=== PATIENT | female | born 1945 | race Asian ===

== ENCOUNTER 2019-07-05 08:18 | Emergency (ER) | payer MEDICARE ==
[~2019-07-05] VITALS: Ht 167.6 cm; Wt 81.8 kg
[2019-07-05 08:44] LABS: BASOPHILS % (AUTO) 0.5 % (0.0-2.0); EOSINOPHILS % (AUTO) 1.6 % (1.0-6.0); HEMATOCRIT 43.8 % (36-46); HEMOGLOBIN 14.1 g/dL (12.0-16.0); LYMPHOCYTES # (AUTO) 3.1 K/uL (1.0-4.8); LYMPHOCYTES % (AUTO) 47.2 % (22.0-44.0); MEAN CORPUSCULAR HEMOGLOBIN 26.9 pg (26.0-34.0); MEAN CORPUSCULAR HGB CONC 32.2 G/dL (31.0-37.0); MEAN CORPUSCULAR VOLUME 83 fL (80-100); MONOCYTES # (AUTO) 0.5 K/uL (0.1-1.0); MONOCYTES % (AUTO) 6.9 % (2.0-9.0); NEUTROPHILS # (AUTO) 2.9 K/uL (1.8-7.7); NEUTROPHILS % (AUTO) 43.8 % (40.0-70.0); PLATELET COUNT (AUTO) 260 K/uL (150-450); RED BLOOD CELL COUNT(AUTO) 5.25 MIL/uL (4.00-5.20)
[2019-07-05 08:57] LABS: ANION GAP 9 mmol/L (8-16); CALCIUM, TOTAL 8.5 mg/dL (8.8-10.5); CARBON DIOXIDE 27 mmol/L (22-29); CHLORIDE 104 mmol/L (98-107); CREATININE 0.79 mg/dL (0.60-1.30); GLOMERULAR FILTR. RATE CALC > 60 mL/min (>60); GLUCOSE,RANDOM 140 mg/dL (70-110); POTASSIUM 3.4 mmol/L (3.5-5.1); SODIUM SERUM 140 mmol/L (136-145); UREA NITROGEN, BLOOD 15 mg/dL (7-18)
[2019-07-05 09:01] LABS: PROTHROMBIN TIME 9.8 SEC (9.4-11.6)
[2019-07-05 09:12] LABS: B-TYPE NATRIURETIC PEPTIDE 20 pg/mL (0-100)
[2019-07-05] MEDS ORDERED: IOVERSOL 320 MG/ML 50 ML VIAL ONE (09:15)
[2019-07-05] MEDS ORDERED: NiCARDipine HCL 25 MG in DEXTROSE 5%-WATER 240 ML IV PRN (09:30)
[2019-07-05 09:36] LABS: ALANINE AMINOTRANSFERASE 24 U/L (12-78); ALBUMIN 3.8 g/dL (3.4-5.0); ALKALINE PHOSPHATASE 61 U/L (46-116); ASPARTATE AMINOTRANSFERASE 20 U/L (15-37); BILIRUBIN,TOTAL 0.4 mg/dL (0.1-1.0); CREATINE KINASE, TOTAL ONLY 176 U/L (26-192); TOTAL PROTEIN, SERUM 7.3 g/dL (6.4-8.2)
[2019-07-05 10:30] VITALS: BP 149/70
== END 2019-07-05 10:55 | disposition short-term general hospital (02) ==
LOC: EMS 08:25
DX: I62.9 Nontraumatic intracranial hemorrhage, unspecified (principal); I10 Essential (primary) hypertension; R79.89 Other specified abnormal findings of blood chemistry
CPT/HCPCS: 36415; 70450; 70496; 71045; 72125; 80053; 82550; 82962; 83880; 84484; 85025; 85610; 85730; 86850; 86900; 86901; 93005; 96365; 99291; J3490; J7060; Q9967

== ENCOUNTER 2019-07-08 15:29 | Inpatient (IN) | payer MEDICARE, MEDICAID ==
[~2019-07-08] VITALS: Ht 162.6 cm; Wt 54.4 kg
[2019-07-08 16:30] VITALS: BP 155/86
[2019-07-08] MEDS ORDERED: LACTULOSE 20 GM/30 ML SOLUTION UDCUP PO PRN (17:00)
[2019-07-08] MEDS ORDERED: BISACODYL 10 MG RECTAL RECTAL SUPPOSITORY PR PRN (17:00)
[2019-07-08] MEDS: CARVEDILOL 6.25 MG TABLET PO SCH (18:19)
[2019-07-08 18:30] VITALS: BP 126/95
[2019-07-08] MEDS: DOCUSATE SODIUM 100 MG CAPSULE PO SCH (20:43)
[2019-07-08] MEDS: SENNA 187 MG TABLET PO SCH (20:43)
[2019-07-09 00:25] VITALS: BP 149/79
[2019-07-09 07:20] VITALS: BP 151/77
[2019-07-09 08:09] LABS: BASOPHILS % (AUTO) 0.3 % (0.0-2.0); EOSINOPHILS % (AUTO) 2.1 % (1.0-6.0); HEMATOCRIT 44.1 % (36-46); HEMOGLOBIN 14.6 g/dL (12.0-16.0); LYMPHOCYTES # (AUTO) 2.6 K/uL (1.0-4.8); LYMPHOCYTES % (AUTO) 36.2 % (22.0-44.0); MEAN CORPUSCULAR HGB CONC 33.1 G/dL (31.0-37.0); MEAN CORPUSCULAR VOLUME 85 fL (80-100); MONOCYTES # (AUTO) 0.6 K/uL (0.1-1.0); MONOCYTES % (AUTO) 8.8 % (2.0-9.0); NEUTROPHILS # (AUTO) 3.7 K/uL (1.8-7.7); NEUTROPHILS % (AUTO) 52.6 % (40.0-70.0); PLATELET COUNT (AUTO) 274 K/uL (150-450); RED BLOOD CELL COUNT(AUTO) 5.22 MIL/uL (4.00-5.20); RED CELL DISTRIBUTION WIDTH 14.4 % (11.5-14.5)
[2019-07-09] MEDS: CARVEDILOL 6.25 MG TABLET PO SCH ×2 (08:35→18:26)
[2019-07-09] MEDS: DOCUSATE SODIUM 100 MG CAPSULE PO SCH ×2 (08:36→20:16)
[2019-07-09] MEDS: AmLODIPine BESYLATE 5 MG TABLET PO SCH (08:36)
[2019-07-09] MEDS: SENNA 187 MG TABLET PO SCH ×2 (08:36→20:16)
[2019-07-09 09:22] LABS: ALANINE AMINOTRANSFERASE 24 U/L (12-78); ALBUMIN 3.6 g/dL (3.4-5.0); ALKALINE PHOSPHATASE 55 U/L (46-116); ANION GAP 8 mmol/L (8-16); ASPARTATE AMINOTRANSFERASE 19 U/L (15-37); BILIRUBIN,TOTAL 0.7 mg/dL (0.1-1.0); CALCIUM, TOTAL 8.6 mg/dL (8.8-10.5); CARBON DIOXIDE 28 mmol/L (22-29); CHLORIDE 104 mmol/L (98-107); CREATININE 0.78 mg/dL (0.60-1.30); GLOMERULAR FILTR. RATE CALC > 60 mL/min (>60); GLUCOSE,RANDOM 99 mg/dL (70-110); POTASSIUM 3.3 mmol/L (3.5-5.1); SODIUM SERUM 140 mmol/L (136-145); TOTAL PROTEIN, SERUM 7.2 g/dL (6.4-8.2); UREA NITROGEN, BLOOD 15 mg/dL (7-18)
[2019-07-09 11:51] LABS: THYROID STIMULATING HORMONE 0.63 uIU/mL (0.36-3.74)
[2019-07-09] MEDS ORDERED: POTASSIUM CHLORIDE 20 MEQ ER TABLET PO ONE (14:00)
[2019-07-09 16:10] VITALS: BP 145/71
[2019-07-09 18:25] VITALS: BP 152/79
[2019-07-10 03:47] VITALS: BP 156/75
[2019-07-10 07:16] VITALS: BP 145/78
[2019-07-10] MEDS: CARVEDILOL 6.25 MG TABLET PO SCH ×2 (09:25→17:34)
[2019-07-10] MEDS: DOCUSATE SODIUM 100 MG CAPSULE PO SCH ×2 (09:25→20:50)
[2019-07-10] MEDS: SENNA 187 MG TABLET PO SCH ×2 (09:25→20:51)
[2019-07-10] MEDS: AmLODIPine BESYLATE 5 MG TABLET PO SCH (09:25)
[2019-07-10 15:00] VITALS: BP 135/68
[2019-07-10 17:23] VITALS: BP 141/90
[2019-07-10 23:00] VITALS: BP 160/75
[2019-07-11 05:00] VITALS: BP 134/65
[2019-07-11 07:10] VITALS: BP 128/69
[2019-07-11 07:15] VITALS: BP 154/74
[2019-07-11] MEDS: DOCUSATE SODIUM 100 MG CAPSULE PO SCH ×2 (08:08→21:11)
[2019-07-11] MEDS: AmLODIPine BESYLATE 10 MG TABLET PO SCH (08:08)
[2019-07-11] MEDS: CARVEDILOL 6.25 MG TABLET PO SCH ×2 (08:08→17:41)
[2019-07-11] MEDS: SENNA 187 MG TABLET PO SCH ×2 (08:08→21:11)
[2019-07-11 10:36] VITALS: BP 101/56
[2019-07-11 13:06] VITALS: BP 124/59
[2019-07-11 15:00] VITALS: BP 155/69
[2019-07-12 01:00] VITALS: BP 127/65
[2019-07-12 07:00] VITALS: BP 130/74
[2019-07-12 08:00] VITALS: BP 135/67
[2019-07-12] MEDS: DOCUSATE SODIUM 100 MG CAPSULE PO SCH ×2 (08:11→20:09)
[2019-07-12] MEDS: SENNA 187 MG TABLET PO SCH ×2 (08:11→20:09)
[2019-07-12] MEDS: AmLODIPine BESYLATE 10 MG TABLET PO SCH (08:14)
[2019-07-12] MEDS: CARVEDILOL 6.25 MG TABLET PO SCH ×2 (10:42→17:38)
[2019-07-12 10:55] VITALS: BP 145/67
[2019-07-12] MEDS: CALCIUM CIT/VITAMIN D3 200 MG-250 UNITS TABLET PO SCH ×2 (13:56→20:09)
[2019-07-12 15:00] VITALS: BP 124/72
[2019-07-13 02:55] VITALS: BP 135/73
[2019-07-13 07:00] VITALS: BP 144/76
[2019-07-13] MEDS: CARVEDILOL 6.25 MG TABLET PO SCH ×2 (07:52→17:24)
[2019-07-13] MEDS: AmLODIPine BESYLATE 10 MG TABLET PO SCH (07:52)
[2019-07-13] MEDS: SENNA 187 MG TABLET PO SCH ×2 (07:52→21:00)
[2019-07-13] MEDS: CALCIUM CIT/VITAMIN D3 200 MG-250 UNITS TABLET PO SCH ×2 (07:52→21:13)
[2019-07-13] MEDS: DOCUSATE SODIUM 100 MG CAPSULE PO SCH ×2 (07:52→21:00)
[2019-07-13 09:50] VITALS: BP 141/69
[2019-07-13 15:00] VITALS: BP 144/69
[2019-07-13 23:30] VITALS: BP 156/61
[2019-07-14 04:38] VITALS: BP 128/66
[2019-07-14 08:00] VITALS: BP 136/68
[2019-07-14] MEDS: DOCUSATE SODIUM 100 MG CAPSULE PO SCH ×2 (08:03→20:45)
[2019-07-14] MEDS: AmLODIPine BESYLATE 10 MG TABLET PO SCH (08:04)
[2019-07-14] MEDS: CARVEDILOL 6.25 MG TABLET PO SCH ×2 (08:04→17:20)
[2019-07-14] MEDS: SENNA 187 MG TABLET PO SCH ×2 (08:04→20:45)
[2019-07-14] MEDS: CALCIUM CIT/VITAMIN D3 200 MG-250 UNITS TABLET PO SCH ×2 (08:04→20:45)
[2019-07-14 20:29] VITALS: BP 142/67
[2019-07-14 23:00] VITALS: BP 151/76
[2019-07-15 07:00] VITALS: BP 145/76
[2019-07-15] MEDS: AmLODIPine BESYLATE 10 MG TABLET PO SCH (08:05)
[2019-07-15] MEDS: DOCUSATE SODIUM 100 MG CAPSULE PO SCH ×2 (08:05→21:07)
[2019-07-15] MEDS: SENNA 187 MG TABLET PO SCH ×2 (08:05→21:07)
[2019-07-15] MEDS: CALCIUM CIT/VITAMIN D3 200 MG-250 UNITS TABLET PO SCH ×2 (08:05→21:07)
[2019-07-15] MEDS: CARVEDILOL 6.25 MG TABLET PO SCH ×2 (08:05→18:30)
[2019-07-15 10:00] VITALS: BP 108/69
[2019-07-15 16:02] VITALS: BP 130/66
[2019-07-15 23:41] VITALS: BP 151/69
[2019-07-16] MEDS ORDERED: LOSA50TA37 PO (03:37)
[2019-07-16] MEDS ORDERED: CALC-1085 PO (03:38)
[2019-07-16 07:00] VITALS: BP 144/62
[2019-07-16] MEDS: CALCIUM CIT/VITAMIN D3 200 MG-250 UNITS TABLET PO SCH ×2 (07:34→20:06)
[2019-07-16] MEDS: AmLODIPine BESYLATE 10 MG TABLET PO SCH (07:35)
[2019-07-16] MEDS: CARVEDILOL 6.25 MG TABLET PO SCH ×2 (07:35→17:43)
[2019-07-16] MEDS: SENNA 187 MG TABLET PO SCH ×2 (07:35→20:06)
[2019-07-16] MEDS: DOCUSATE SODIUM 100 MG CAPSULE PO SCH ×2 (07:35→20:06)
[2019-07-16 09:59] VITALS: BP 127/75
[2019-07-16 15:20] VITALS: BP 130/64
[2019-07-16 23:48] VITALS: BP 126/65
[2019-07-17] MEDS: SENNA 187 MG TABLET PO SCH ×2 (07:59→21:05)
[2019-07-17] MEDS: AmLODIPine BESYLATE 10 MG TABLET PO SCH (07:59)
[2019-07-17] MEDS: CALCIUM CIT/VITAMIN D3 200 MG-250 UNITS TABLET PO SCH ×2 (07:59→21:05)
[2019-07-17] MEDS: DOCUSATE SODIUM 100 MG CAPSULE PO SCH ×2 (07:59→21:05)
[2019-07-17] MEDS: CARVEDILOL 6.25 MG TABLET PO SCH ×2 (07:59→17:46)
[2019-07-17] MEDS: GABAPENTIN 100 MG CAPSULE PO SCH ×3 (11:42→21:05)
[2019-07-17 14:07] VITALS: BP 129/69
[2019-07-17 16:10] VITALS: BP 141/79
[2019-07-17 20:00] VITALS: BP 132/74
[2019-07-18 05:15] VITALS: BP 128/61
[2019-07-18 07:27] VITALS: BP 139/70
[2019-07-18] MEDS: CARVEDILOL 6.25 MG TABLET PO SCH ×2 (07:44→16:18)
[2019-07-18 08:07] LABS: ANION GAP 8 mmol/L (8-16); CALCIUM, TOTAL 9.2 mg/dL (8.8-10.5); CARBON DIOXIDE 29 mmol/L (22-29); CHLORIDE 107 mmol/L (98-107); CREATININE 0.64 mg/dL (0.60-1.30); GLUCOSE,RANDOM 107 mg/dL (70-110); POTASSIUM 4.9 mmol/L (3.5-5.1); SODIUM SERUM 144 mmol/L (136-145); UREA NITROGEN, BLOOD 17 mg/dL (7-18)
[2019-07-18 08:08] LABS: GLOMERULAR FILTR. RATE CALC > 60 mL/min (>60)
[2019-07-18] MEDS: SENNA 187 MG TABLET PO SCH ×2 (08:55→20:26)
[2019-07-18] MEDS: AmLODIPine BESYLATE 10 MG TABLET PO SCH (08:55)
[2019-07-18] MEDS: GABAPENTIN 100 MG CAPSULE PO SCH ×3 (08:55→20:26)
[2019-07-18] MEDS: CALCIUM CIT/VITAMIN D3 200 MG-250 UNITS TABLET PO SCH ×2 (08:55→20:26)
[2019-07-18] MEDS: DOCUSATE SODIUM 100 MG CAPSULE PO SCH ×2 (08:55→20:26)
[2019-07-18] MEDS: CARBOXYMETHYLCELLULOSE SODIUM 0.4 ML OPHTHALMIC SOLUTION [PF] OU SCH ×4 (10:15→20:26)
[2019-07-18 16:14] VITALS: BP 124/66
[2019-07-18] MEDS: MINERAL OIL/PETROLATUM,WHITE PF 3.5 GM OPHTHALMIC OINTMENT OU SCH (20:31)
[2019-07-18 23:30] VITALS: BP 139/75
[2019-07-19 07:10] VITALS: BP 134/69
[2019-07-19] MEDS: CALCIUM CIT/VITAMIN D3 200 MG-250 UNITS TABLET PO SCH ×2 (08:10→19:44)
[2019-07-19] MEDS: SENNA 187 MG TABLET PO SCH ×2 (08:10→19:44)
[2019-07-19] MEDS: DOCUSATE SODIUM 100 MG CAPSULE PO SCH ×2 (08:11→19:44)
[2019-07-19] MEDS: AmLODIPine BESYLATE 10 MG TABLET PO SCH (08:11)
[2019-07-19] MEDS: CARVEDILOL 6.25 MG TABLET PO SCH ×2 (08:11→17:38)
[2019-07-19] MEDS: GABAPENTIN 100 MG CAPSULE PO SCH ×3 (08:11→19:44)
[2019-07-19] MEDS: CARBOXYMETHYLCELLULOSE SODIUM 0.4 ML OPHTHALMIC SOLUTION [PF] OU SCH ×2 (14:51→17:38)
[2019-07-19 15:46] VITALS: BP 131/83
[2019-07-19] MEDS: MINERAL OIL/PETROLATUM,WHITE PF 3.5 GM OPHTHALMIC OINTMENT OU SCH (19:44)
[2019-07-20 00:35] VITALS: BP 148/73
[2019-07-20 07:07] VITALS: BP 127/65
[2019-07-20] MEDS: CARBOXYMETHYLCELLULOSE SODIUM 0.4 ML OPHTHALMIC SOLUTION [PF] OU SCH ×3 (08:27→17:31)
[2019-07-20] MEDS: GABAPENTIN 100 MG CAPSULE PO SCH ×3 (08:27→20:08)
[2019-07-20] MEDS: DOCUSATE SODIUM 100 MG CAPSULE PO SCH ×2 (08:27→20:09)
[2019-07-20] MEDS: CARVEDILOL 6.25 MG TABLET PO SCH ×2 (08:27→17:30)
[2019-07-20] MEDS: CALCIUM CIT/VITAMIN D3 200 MG-250 UNITS TABLET PO SCH ×2 (08:27→17:32)
[2019-07-20] MEDS: SENNA 187 MG TABLET PO SCH ×2 (08:27→20:11)
[2019-07-20] MEDS: AmLODIPine BESYLATE 10 MG TABLET PO SCH (08:28)
[2019-07-20 15:45] VITALS: BP 138/63
[2019-07-20] MEDS: MINERAL OIL/PETROLATUM,WHITE PF 3.5 GM OPHTHALMIC OINTMENT OU SCH (20:09)
[2019-07-20 23:33] VITALS: BP 123/60
[2019-07-21 07:10] VITALS: BP 127/72
[2019-07-21] MEDS: CALCIUM CIT/VITAMIN D3 200 MG-250 UNITS TABLET PO SCH ×2 (07:52→20:42)
[2019-07-21] MEDS: GABAPENTIN 100 MG CAPSULE PO SCH ×3 (07:52→20:40)
[2019-07-21] MEDS: CARBOXYMETHYLCELLULOSE SODIUM 0.4 ML OPHTHALMIC SOLUTION [PF] OU SCH ×3 (07:52→17:08)
[2019-07-21] MEDS: DOCUSATE SODIUM 100 MG CAPSULE PO SCH ×2 (07:52→20:40)
[2019-07-21] MEDS: SENNA 187 MG TABLET PO SCH ×2 (07:52→20:40)
[2019-07-21] MEDS: CARVEDILOL 6.25 MG TABLET PO SCH ×2 (07:53→17:08)
[2019-07-21] MEDS: AmLODIPine BESYLATE 10 MG TABLET PO SCH (07:53)
[2019-07-21 15:00] VITALS: BP 130/70
[2019-07-21 17:06] VITALS: BP 140/67
[2019-07-21] MEDS: MINERAL OIL/PETROLATUM,WHITE PF 3.5 GM OPHTHALMIC OINTMENT OU SCH (20:40)
[2019-07-22] VITALS: BP 131/59
[2019-07-22 07:07] VITALS: BP 136/69
[2019-07-22] MEDS: CARVEDILOL 6.25 MG TABLET PO SCH ×2 (07:51→17:28)
[2019-07-22] MEDS: DOCUSATE SODIUM 100 MG CAPSULE PO SCH ×2 (07:51→21:08)
[2019-07-22] MEDS: GABAPENTIN 100 MG CAPSULE PO SCH ×3 (07:51→21:08)
[2019-07-22] MEDS: CALCIUM CIT/VITAMIN D3 200 MG-250 UNITS TABLET PO SCH ×2 (07:52→21:08)
[2019-07-22] MEDS: AmLODIPine BESYLATE 10 MG TABLET PO SCH (07:52)
[2019-07-22] MEDS: SENNA 187 MG TABLET PO SCH ×2 (07:56→21:09)
[2019-07-22] MEDS: CARBOXYMETHYLCELLULOSE SODIUM 0.4 ML OPHTHALMIC SOLUTION [PF] OU SCH ×3 (08:38→17:28)
[2019-07-22 15:10] VITALS: BP 136/61
[2019-07-22] MEDS: MINERAL OIL/PETROLATUM,WHITE PF 3.5 GM OPHTHALMIC OINTMENT OU SCH (21:08)
[2019-07-23 00:23] VITALS: BP 130/58
[2019-07-23] MEDS: CALCIUM CIT/VITAMIN D3 200 MG-250 UNITS TABLET PO SCH ×2 (08:11→20:20)
[2019-07-23] MEDS: AmLODIPine BESYLATE 10 MG TABLET PO SCH (08:11)
[2019-07-23] MEDS: SENNA 187 MG TABLET PO SCH ×2 (08:11→20:20)
[2019-07-23] MEDS: DOCUSATE SODIUM 100 MG CAPSULE PO SCH ×2 (08:11→20:20)
[2019-07-23] MEDS: GABAPENTIN 100 MG CAPSULE PO SCH ×3 (08:11→20:20)
[2019-07-23] MEDS: CARVEDILOL 6.25 MG TABLET PO SCH ×2 (08:12→17:22)
[2019-07-23] MEDS: CARBOXYMETHYLCELLULOSE SODIUM 0.4 ML OPHTHALMIC SOLUTION [PF] OU SCH ×3 (08:16→17:50)
[2019-07-23 08:20] VITALS: BP 136/74
[2019-07-23] MEDS: ENOXAPARIN SODIUM 30 MG/0.3 ML PF SYRINGE SQ SCH ×2 (10:18→20:20)
[2019-07-23 10:45] LABS: BASOPHILS % (AUTO) 0.5 % (0.0-2.0); EOSINOPHILS % (AUTO) 1.7 % (1.0-6.0); HEMOGLOBIN 13.8 g/dL (12.0-16.0); LYMPHOCYTES # (AUTO) 1.7 K/uL (1.0-4.8); LYMPHOCYTES % (AUTO) 30.8 % (22.0-44.0); MEAN CORPUSCULAR HEMOGLOBIN 28.2 pg (26.0-34.0); MEAN CORPUSCULAR HGB CONC 33.7 G/dL (31.0-37.0); MEAN CORPUSCULAR VOLUME 84 fL (80-100); MONOCYTES # (AUTO) 0.4 K/uL (0.1-1.0); MONOCYTES % (AUTO) 7.7 % (2.0-9.0); NEUTROPHILS # (AUTO) 3.3 K/uL (1.8-7.7); NEUTROPHILS % (AUTO) 59.3 % (40.0-70.0); PLATELET COUNT (AUTO) 274 K/uL (150-450); RED BLOOD CELL COUNT(AUTO) 4.89 MIL/uL (4.00-5.20); RED CELL DISTRIBUTION WIDTH 13.7 % (11.5-14.5)
[2019-07-23 11:42] LABS: ALANINE AMINOTRANSFERASE 20 U/L (12-78); ALBUMIN 3.4 g/dL (3.4-5.0); ALKALINE PHOSPHATASE 65 U/L (46-116); ANION GAP 9 mmol/L (8-16); ASPARTATE AMINOTRANSFERASE 16 U/L (15-37); BILIRUBIN,TOTAL 0.4 mg/dL (0.1-1.0); CALCIUM, TOTAL 9.1 mg/dL (8.8-10.5); CARBON DIOXIDE 26 mmol/L (22-29); CHLORIDE 104 mmol/L (98-107); CREATININE 0.62 mg/dL (0.60-1.30); GLUCOSE,RANDOM 104 mg/dL (70-110); POTASSIUM 3.6 mmol/L (3.5-5.1); SODIUM SERUM 139 mmol/L (136-145); TOTAL PROTEIN, SERUM 7.3 g/dL (6.4-8.2); UREA NITROGEN, BLOOD 15 mg/dL (7-18)
[2019-07-23 11:44] LABS: GLOMERULAR FILTR. RATE CALC > 60 mL/min (>60)
[2019-07-23 15:10] VITALS: BP 137/67
[2019-07-23 16:13] VITALS: BP 137/67
[2019-07-23] MEDS: MINERAL OIL/PETROLATUM,WHITE PF 3.5 GM OPHTHALMIC OINTMENT OU SCH (20:20)
[2019-07-24 00:35] VITALS: BP 127/68
[2019-07-24 07:10] VITALS: BP 143/78
[2019-07-24] MEDS: CALCIUM CIT/VITAMIN D3 200 MG-250 UNITS TABLET PO SCH ×2 (08:05→20:34)
[2019-07-24] MEDS: GABAPENTIN 100 MG CAPSULE PO SCH ×3 (08:05→20:34)
[2019-07-24] MEDS: AmLODIPine BESYLATE 10 MG TABLET PO SCH (08:05)
[2019-07-24] MEDS: SENNA 187 MG TABLET PO SCH ×2 (08:05→20:34)
[2019-07-24] MEDS: CARBOXYMETHYLCELLULOSE SODIUM 0.4 ML OPHTHALMIC SOLUTION [PF] OU SCH ×3 (08:05→17:44)
[2019-07-24] MEDS: DOCUSATE SODIUM 100 MG CAPSULE PO SCH ×2 (08:06→20:34)
[2019-07-24] MEDS: CARVEDILOL 6.25 MG TABLET PO SCH ×2 (08:11→17:44)
[2019-07-24] MEDS: ENOXAPARIN SODIUM 30 MG/0.3 ML PF SYRINGE SQ SCH ×2 (08:39→20:34)
[2019-07-24] MEDS ORDERED: 0.9% SODIUM CHLORIDE 10 ML SYRINGE IVP ONE (08:59)
[2019-07-24 15:00] VITALS: BP 127/60
[2019-07-24] MEDS: MINERAL OIL/PETROLATUM,WHITE PF 3.5 GM OPHTHALMIC OINTMENT OU SCH (20:34)
[2019-07-24 23:00] VITALS: BP 127/72
[2019-07-24 23:05] VITALS: BP 127/72
[2019-07-25 07:30] VITALS: BP 144/62
[2019-07-25] MEDS: CARVEDILOL 6.25 MG TABLET PO SCH ×2 (07:58→17:22)
[2019-07-25] MEDS: SENNA 187 MG TABLET PO SCH ×2 (07:58→19:53)
[2019-07-25] MEDS: CALCIUM CIT/VITAMIN D3 200 MG-250 UNITS TABLET PO SCH ×2 (07:58→19:53)
[2019-07-25] MEDS: AmLODIPine BESYLATE 10 MG TABLET PO SCH (07:58)
[2019-07-25] MEDS: ENOXAPARIN SODIUM 30 MG/0.3 ML PF SYRINGE SQ SCH ×2 (07:58→19:54)
[2019-07-25] MEDS: DOCUSATE SODIUM 100 MG CAPSULE PO SCH ×2 (07:58→19:53)
[2019-07-25] MEDS: CARBOXYMETHYLCELLULOSE SODIUM 0.4 ML OPHTHALMIC SOLUTION [PF] OU SCH ×3 (08:07→17:22)
[2019-07-25] MEDS: GABAPENTIN 100 MG CAPSULE PO SCH ×3 (08:11→19:52)
[2019-07-25 16:14] VITALS: BP 139/77
[2019-07-25] MEDS: MINERAL OIL/PETROLATUM,WHITE PF 3.5 GM OPHTHALMIC OINTMENT OU SCH (19:52)
[2019-07-25 23:15] VITALS: BP 142/73
[2019-07-26 07:17] VITALS: BP 158/93
[2019-07-26] MEDS: DOCUSATE SODIUM 100 MG CAPSULE PO SCH ×2 (07:42→21:09)
[2019-07-26] MEDS: AmLODIPine BESYLATE 10 MG TABLET PO SCH (07:42)
[2019-07-26] MEDS: GABAPENTIN 100 MG CAPSULE PO SCH ×3 (07:42→21:09)
[2019-07-26] MEDS: CALCIUM CIT/VITAMIN D3 200 MG-250 UNITS TABLET PO SCH ×2 (07:42→21:09)
[2019-07-26] MEDS: SENNA 187 MG TABLET PO SCH ×2 (07:42→21:09)
[2019-07-26] MEDS: CARBOXYMETHYLCELLULOSE SODIUM 0.4 ML OPHTHALMIC SOLUTION [PF] OU SCH ×3 (07:42→16:22)
[2019-07-26] MEDS: CARVEDILOL 6.25 MG TABLET PO SCH ×2 (07:43→16:22)
[2019-07-26] MEDS: ENOXAPARIN SODIUM 30 MG/0.3 ML PF SYRINGE SQ SCH ×2 (07:43→21:09)
[2019-07-26 12:41] VITALS: BP 140/68
[2019-07-26 15:50] VITALS: BP 146/104
[2019-07-26 20:30] VITALS: BP 141/75
[2019-07-26 20:35] VITALS: BP 141/59
[2019-07-26] MEDS: MINERAL OIL/PETROLATUM,WHITE PF 3.5 GM OPHTHALMIC OINTMENT OU SCH (21:10)
[2019-07-26 23:32] VITALS: BP 134/69
[2019-07-27 07:20] VITALS: BP 143/79
[2019-07-27] MEDS: CARBOXYMETHYLCELLULOSE SODIUM 0.4 ML OPHTHALMIC SOLUTION [PF] OU SCH ×3 (08:42→17:38)
[2019-07-27] MEDS: CARVEDILOL 6.25 MG TABLET PO SCH ×2 (08:42→17:38)
[2019-07-27] MEDS: ENOXAPARIN SODIUM 30 MG/0.3 ML PF SYRINGE SQ SCH ×2 (08:42→19:13)
[2019-07-27] MEDS: DOCUSATE SODIUM 100 MG CAPSULE PO SCH ×2 (08:42→19:12)
[2019-07-27] MEDS: SENNA 187 MG TABLET PO SCH ×2 (08:42→19:12)
[2019-07-27] MEDS: CALCIUM CIT/VITAMIN D3 200 MG-250 UNITS TABLET PO SCH ×2 (08:42→19:12)
[2019-07-27] MEDS: AmLODIPine BESYLATE 10 MG TABLET PO SCH (08:42)
[2019-07-27] MEDS: GABAPENTIN 100 MG CAPSULE PO SCH ×3 (08:43→19:12)
[2019-07-27 15:09] VITALS: BP 114/60
[2019-07-27] MEDS: MINERAL OIL/PETROLATUM,WHITE PF 3.5 GM OPHTHALMIC OINTMENT OU SCH (19:12)
[2019-07-27] MEDS ORDERED: AMLO10TA7 PO (20:16)
[2019-07-27] MEDS ORDERED: DOCU-275 PO (20:26)
[2019-07-27] MEDS ORDERED: CALC-884 PO (20:26)
[2019-07-27] MEDS ORDERED: CARV6 PO (20:26)
[2019-07-27] MEDS ORDERED: GABA-1216 PO (20:27)
[2019-07-27] MEDS ORDERED: CARB15DR54 OU (20:28)
[2019-07-27] MEDS ORDERED: [UNRECOGNIZED DRUG - CODE] OU (21:04)
[2019-07-27 23:16] VITALS: BP 145/61
[2019-07-28 07:10] VITALS: BP 150/84
[2019-07-28] MEDS: CALCIUM CIT/VITAMIN D3 200 MG-250 UNITS TABLET PO SCH ×2 (07:34→21:02)
[2019-07-28] MEDS: SENNA 187 MG TABLET PO SCH ×2 (07:34→21:02)
[2019-07-28] MEDS: DOCUSATE SODIUM 100 MG CAPSULE PO SCH ×2 (07:34→21:02)
[2019-07-28] MEDS: AmLODIPine BESYLATE 10 MG TABLET PO SCH (07:34)
[2019-07-28] MEDS: CARBOXYMETHYLCELLULOSE SODIUM 0.4 ML OPHTHALMIC SOLUTION [PF] OU SCH ×3 (07:35→17:09)
[2019-07-28] MEDS: GABAPENTIN 100 MG CAPSULE PO SCH ×3 (07:35→21:02)
[2019-07-28] MEDS: CARVEDILOL 6.25 MG TABLET PO SCH ×2 (07:36→17:09)
[2019-07-28] MEDS: ENOXAPARIN SODIUM 30 MG/0.3 ML PF SYRINGE SQ SCH ×2 (09:10→21:05)
[2019-07-28 15:36] VITALS: BP 151/69
[2019-07-28] MEDS: MINERAL OIL/PETROLATUM,WHITE PF 3.5 GM OPHTHALMIC OINTMENT OU SCH (21:02)
[2019-07-29 07:12] VITALS: BP 124/60
[2019-07-29] MEDS: CARBOXYMETHYLCELLULOSE SODIUM 0.4 ML OPHTHALMIC SOLUTION [PF] OU SCH ×3 (08:10→16:12)
[2019-07-29] MEDS: CALCIUM CIT/VITAMIN D3 200 MG-250 UNITS TABLET PO SCH ×2 (08:10→20:15)
[2019-07-29] MEDS: SENNA 187 MG TABLET PO SCH ×2 (08:10→20:15)
[2019-07-29] MEDS: CARVEDILOL 6.25 MG TABLET PO SCH ×2 (08:11→17:52)
[2019-07-29] MEDS: GABAPENTIN 100 MG CAPSULE PO SCH ×3 (08:11→20:15)
[2019-07-29] MEDS: DOCUSATE SODIUM 100 MG CAPSULE PO SCH ×2 (08:11→20:15)
[2019-07-29] MEDS: AmLODIPine BESYLATE 10 MG TABLET PO SCH (08:11)
[2019-07-29] MEDS: ENOXAPARIN SODIUM 30 MG/0.3 ML PF SYRINGE SQ SCH ×2 (08:12→20:15)
[2019-07-29 15:00] VITALS: BP 130/62
[2019-07-29] MEDS: MINERAL OIL/PETROLATUM,WHITE PF 3.5 GM OPHTHALMIC OINTMENT OU SCH (20:15)
[2019-07-29 23:30] VITALS: BP 143/66
[2019-07-30 07:22] VITALS: BP 146/69
[2019-07-30] MEDS: ENOXAPARIN SODIUM 30 MG/0.3 ML PF SYRINGE SQ SCH ×2 (08:12→21:30)
[2019-07-30] MEDS: AmLODIPine BESYLATE 10 MG TABLET PO SCH (08:13)
[2019-07-30] MEDS: CARVEDILOL 6.25 MG TABLET PO SCH ×2 (08:13→18:06)
[2019-07-30] MEDS: CARBOXYMETHYLCELLULOSE SODIUM 0.4 ML OPHTHALMIC SOLUTION [PF] OU SCH ×3 (08:13→18:06)
[2019-07-30] MEDS: GABAPENTIN 100 MG CAPSULE PO SCH ×3 (08:13→20:40)
[2019-07-30] MEDS: CALCIUM CIT/VITAMIN D3 200 MG-250 UNITS TABLET PO SCH ×2 (08:13→20:40)
[2019-07-30] MEDS: DOCUSATE SODIUM 100 MG CAPSULE PO SCH ×2 (08:13→20:40)
[2019-07-30] MEDS: SENNA 187 MG TABLET PO SCH ×2 (08:13→20:40)
[2019-07-30 17:55] VITALS: BP 150/76
[2019-07-30] MEDS: MINERAL OIL/PETROLATUM,WHITE PF 3.5 GM OPHTHALMIC OINTMENT OU SCH (20:40)
[2019-07-30 23:00] VITALS: BP 142/69
[2019-07-31] MEDS ORDERED: CLOP75TA3 PO (07:16)
[2019-07-31 07:18] VITALS: BP 124/65
[2019-07-31] MEDS: CARVEDILOL 6.25 MG TABLET PO SCH (08:17)
[2019-07-31] MEDS: SENNA 187 MG TABLET PO SCH (08:17)
[2019-07-31] MEDS: ENOXAPARIN SODIUM 30 MG/0.3 ML PF SYRINGE SQ SCH (08:17)
[2019-07-31] MEDS: CALCIUM CIT/VITAMIN D3 200 MG-250 UNITS TABLET PO SCH (08:17)
[2019-07-31] MEDS: AmLODIPine BESYLATE 10 MG TABLET PO SCH (08:17)
[2019-07-31] MEDS: CARBOXYMETHYLCELLULOSE SODIUM 0.4 ML OPHTHALMIC SOLUTION [PF] OU SCH (08:18)
[2019-07-31] MEDS: DOCUSATE SODIUM 100 MG CAPSULE PO SCH (08:18)
[2019-07-31] MEDS: GABAPENTIN 100 MG CAPSULE PO SCH (08:18)
[2019-07-31] MEDS ORDERED: CLOPIDOGREL BISULFATE 75 MG TABLET PO SCH (09:00)
== END 2019-07-31 11:30 | disposition home health service (06) | DRG 56 ==
LOC: 4E 16:20 → UNDOADMIN 16:20 → 2WR 16:23 → 4E 07-15 12:13 → 2WR 07-17 10:04 → 4E 07-17 10:04 → 2WR 07-18 08:34
PROVIDERS: ADMIT Physical Medicine & Rehabilitation; ATTEND Physical Medicine & Rehabilitation
DX: I69.354 Hemiplegia and hemiparesis following cerebral infarction affecting left non-dominant side (principal); I61.0 Nontraumatic intracerebral hemorrhage in hemisphere, subcortical; I10 Essential (primary) hypertension; Z82.49 Family history of ischemic heart disease and other diseases of the circulatory system; R13.10 Dysphagia, unspecified; R26.9 Unspecified abnormalities of gait and mobility
CPT/HCPCS: 76536; 84132; 84436; 84443; 87081; 92507; 92523; 92526; 93970; 93971; 97112; 97116; 97163; 97167; 97530; 97535; 99366; 99368; J1650

== ENCOUNTER → 2019-09-11 | Outpatient (CLI) | payer MEDICARE, MEDICAID ==
[~2019-09-11] MED LIST: AMLO-258 PO; CALC-884 PO; CARB15DR54 OU; CARV6 PO; CLOP75TA3 PO; DOCU-275 PO; GABA-1216 PO; [UNRECOGNIZED DRUG - CODE] OU
== END | disposition home or self-care (01) ==
LOC: RADPV 09:07
PROVIDERS: ATTEND Physical Medicine & Rehabilitation
DX: I67.82 Cerebral ischemia (principal); I82.462 Acute embolism and thrombosis of left calf muscular vein; G31.9 Degenerative disease of nervous system, unspecified; I67.2 Cerebral atherosclerosis
CPT/HCPCS: 70450; 93970

== ENCOUNTER 2019-11-25 09:28 | Emergency (ER) | payer MEDICARE, MEDICAID ==
[~2019-11-25] VITALS: Ht 149.9 cm; Wt 50.0 kg
[~2019-11-25 09:28] MED LIST changes: +CLOP-31 PO; -CLOP75TA3 PO
[2019-11-25] MEDS ORDERED: LIDOCAINE 5% TRANSDERMAL PATCH TD ONE (10:45)
[2019-11-25 11:37] VITALS: BP 143/85
== END 2019-11-25 12:22 | disposition home or self-care (01) ==
LOC: EMS 09:32
DX: S13.4XXA Sprain of ligaments of cervical spine, initial encounter (principal); I10 Essential (primary) hypertension; Z88.1 Allergy status to other antibiotic agents; Z88.6 Allergy status to analgesic agent; Z79.899 Other long term (current) drug therapy; W18.39XA Other fall on same level, initial encounter; Y93.89 Activity, other specified; Y92.89 Other specified places as the place of occurrence of the external cause; Y99.8 Other external cause status
CPT/HCPCS: 72125; Z7502; Z7610

== ENCOUNTER 2021-06-03 20:52 | Inpatient (IN) | payer MEDICAID, MEDICARE ==
[~2021-06-03] VITALS: Ht 147.3 cm; Wt 55.8 kg
[~2021-06-03 20:52] MED LIST changes: +AMLO-257 PO; -AMLO-258 PO; +ATOR10TA84 PO; -CALC-884 PO; -CARB15DR54 OU; +CARV12 PO; -CARV6 PO; -CLOP-31 PO; +CLOP75TA60 PO; -DOCU-275 PO; -GABA-1216 PO; -[UNRECOGNIZED DRUG - CODE] OU
[2021-06-03 22:13] LABS: BASOPHILS % (AUTO) 0.2 % (0.0-2.0); EOSINOPHILS % (AUTO) 0.1 % (1.0-6.0); HEMATOCRIT 41.3 % (36-46); HEMOGLOBIN 13.8 g/dL (12.0-16.0); LYMPHOCYTES # (AUTO) 0.9 K/uL (1.0-4.8); LYMPHOCYTES % (AUTO) 8.1 % (22.0-44.0); MEAN CORPUSCULAR HEMOGLOBIN 27.6 pg (26.0-34.0); MEAN CORPUSCULAR HGB CONC 33.4 G/dL (31.0-37.0); MEAN CORPUSCULAR VOLUME 83 fL (80-100); MONOCYTES # (AUTO) 0.7 K/uL (0.1-1.0); MONOCYTES % (AUTO) 6.3 % (2.0-9.0); NEUTROPHILS # (AUTO) 9.3 K/uL (1.8-7.7); PLATELET COUNT (AUTO) 303 K/uL (150-450); RED CELL DISTRIBUTION WIDTH 14.3 % (11.5-14.5)
[2021-06-03 22:35] LABS: NEUTROPHILS % (AUTO) 85.3 % (40.0-70.0)
[2021-06-03 22:40] LABS: ANION GAP 9 mmol/L (8-16); CALCIUM, TOTAL 9.2 mg/dL (8.8-10.5); CARBON DIOXIDE 28 mmol/L (22-29); CHLORIDE 99 mmol/L (98-107); CREATININE 0.82 mg/dL (0.60-1.30); GLUCOSE,RANDOM 143 mg/dL (70-110); POTASSIUM 3.8 mmol/L (3.5-5.1); SODIUM SERUM 136 mmol/L (136-145); UREA NITROGEN, BLOOD 13 mg/dL (7-18)
[2021-06-03 22:41] LABS: GLOMERULAR FILTR. RATE CALC > 60 mL/min (>60)
[2021-06-03 22:44] LABS: PROTHROMBIN TIME 10.4 SEC (9.4-11.6)
[2021-06-03 22:56] LABS: B-TYPE NATRIURETIC PEPTIDE 13 pg/mL (0-100)
[2021-06-03 23:01] LABS: COVID AG,FIA SOURCE NASAL SWAB
[2021-06-03 23:04] LABS: ALANINE AMINOTRANSFERASE 23 U/L (12-78); ALBUMIN 4.2 g/dL (3.4-5.0); ALKALINE PHOSPHATASE 70 U/L (46-116); ASPARTATE AMINOTRANSFERASE 22 U/L (15-37); BILIRUBIN,TOTAL 0.5 mg/dL (0.1-1.0); CREATINE KINASE, TOTAL ONLY 146 U/L (26-192); TOTAL PROTEIN, SERUM 8.1 g/dL (6.4-8.2)
[2021-06-03] MEDS ORDERED: FentaNYL CITRATE PF 100 MCG/2 ML VIAL IVP ONE (23:15)
[2021-06-03] MEDS ORDERED: ONDANSETRON HCL 4 MG/2 ML VIAL IVP ONE (23:15)
[2021-06-03] MEDS ORDERED: MAGNESIUM HYDROXIDE SUSPENSION 30 ML UDCUP PO PRN (23:45)
[2021-06-03] MEDS ORDERED: BISACODYL 10 MG RECTAL RECTAL SUPPOSITORY PR PRN (23:45)
[2021-06-03] MEDS ORDERED: ZOLPIDEM TARTRATE 5 MG TABLET PO PRN (23:45)
[2021-06-03] MEDS ORDERED: MORPHINE SULFATE 2 MG/ML SYRINGE IVP PRN (23:45)
[2021-06-03] MEDS ORDERED: ACETAMINOPHEN 325 MG TABLET PO PRN (23:45)
[2021-06-03] MEDS ORDERED: ONDANSETRON HCL 4 MG/2 ML VIAL IVP PRN (23:45)
[2021-06-04 01:05] VITALS: BP 152/78
[2021-06-04 05:41] VITALS: BP 127/66
[2021-06-04 07:35] VITALS: BP 130/70
[2021-06-04] MEDS: HEPARIN SODIUM,PORCINE 5,000 UNITS/ML VIAL SQ SCH ×2 (08:00)
[2021-06-04] MEDS: CARVEDILOL 12.5 MG TABLET PO SCH ×2 (08:42→21:00)
[2021-06-04] MEDS: PANTOPRAZOLE SODIUM 40 MG DR TABLET PO SCH (08:42)
[2021-06-04] MEDS: AmLODIPine BESYLATE 5 MG TABLET PO SCH (08:42)
[2021-06-04] MEDS: DOCUSATE SODIUM 100 MG CAPSULE PO SCH ×2 (08:42→21:15)
[2021-06-04] MEDS: CALCIUM CIT/VITAMIN D3 200 MG-250 UNITS[6.25MCG] TABLET PO SCH ×2 (09:00→21:15)
[2021-06-04 09:20] LABS: BASOPHILS % (AUTO) 0.2 % (0.0-2.0); EOSINOPHILS % (AUTO) 0.8 % (1.0-6.0); HEMATOCRIT 37.4 % (36-46); HEMOGLOBIN 12.4 g/dL (12.0-16.0); LYMPHOCYTES # (AUTO) 1.4 K/uL (1.0-4.8); LYMPHOCYTES % (AUTO) 17.2 % (22.0-44.0); MEAN CORPUSCULAR HEMOGLOBIN 27.3 pg (26.0-34.0); MEAN CORPUSCULAR HGB CONC 33.1 G/dL (31.0-37.0); MEAN CORPUSCULAR VOLUME 83 fL (80-100); MONOCYTES # (AUTO) 0.7 K/uL (0.1-1.0); MONOCYTES % (AUTO) 8.8 % (2.0-9.0); PLATELET COUNT (AUTO) 264 K/uL (150-450); RED BLOOD CELL COUNT(AUTO) 4.53 MIL/uL (4.00-5.20)
[2021-06-04] MEDS ORDERED: LIDOCAINE/PF 2% 5 ML VIAL IM ONE (12:00)
[2021-06-04] MEDS ORDERED: ONDANSETRON HCL 4 MG/2 ML VIAL IVP ONE (12:00)
[2021-06-04] MEDS ORDERED: ROCURONIUM BROMIDE 10 MG/ML 5 ML VIAL IVP ONE (12:00)
[2021-06-04] MEDS ORDERED: FentaNYL CITRATE PF 100 MCG/2 ML VIAL IVP ONE (12:00)
[2021-06-04] MEDS ORDERED: MIDAZOLAM HCL 2 MG/2 ML VIAL IVP ONE (12:00)
[2021-06-04] MEDS ORDERED: PROPOFOL 1% 20 ML VIAL IVP ONE (12:00)
[2021-06-04] MEDS ORDERED: TRANEXAMIC ACID 1,000 MG/10 ML VIAL ONE (13:14)
[2021-06-04] MEDS ORDERED: VANCOMYCIN HCL 1 GM/VIAL ONE (13:15)
[2021-06-04] MEDS ORDERED: BUPIVACAINE HCL/PF 0.25% 30 ML VIAL ONE (13:15)
[2021-06-04] MEDS ORDERED: SUGAMMADEX SODIUM 200 MG/2 ML VIAL IVP ONE (13:15)
[2021-06-04] MEDS ORDERED: SODIUM CHLORIDE 0.9% 200 ML ONE (13:15)
[2021-06-04] MEDS ORDERED: SODIUM CL IRRIG SOLN BAG 3,000 ML IRRIG ONE (13:16)
[2021-06-04] MEDS ORDERED: FAMO20 PO (13:25)
[2021-06-04] MEDS ORDERED: METH5TAB PO (13:25)
[2021-06-04] MEDS ORDERED: BUPIVACAINE LIPOSOME/PF 1.3%-13.3MG/ML SUSPENSION 20 ML VIAL INJ ONE (13:30)
[2021-06-04] MEDS ORDERED: RINGERS SOLUTION,LACTATED 1,000 ML IV ONE (14:26)
[2021-06-04] MEDS ORDERED: BUPIVACAINE LIPOSOME/PF 1.3%-13.3MG/ML SUSPENSION 10 ML VIAL INJ ONE (15:42)
[2021-06-04] MEDS ORDERED: FentaNYL CITRATE PF 100 MCG/2 ML VIAL IVP PRN (16:00)
[2021-06-04] MEDS ORDERED: HYDROmorphone 2 MG/ML VIAL IVP PRN (16:00)
[2021-06-04] MEDS ORDERED: OxyCODONE HCL/ACETAMINOPHEN 5-325 MG TABLET PO PRN (18:00)
[2021-06-04 18:27] VITALS: BP 119/52
[2021-06-04 20:04] VITALS: BP 109/58
[2021-06-04] MEDS: ATORVASTATIN CALCIUM 10 MG TABLET PO SCH (21:15)
[2021-06-04] MEDS ORDERED: SODIUM CHLORIDE 0.9% 250 ML IV ONE (23:07)
[2021-06-04] MEDS: CeFAZolin 1 GM/DEXTROSE 50 ML IV SCH (23:13)
[2021-06-04 23:27] VITALS: BP 117/56
[2021-06-05 05:19] VITALS: BP 109/48
[2021-06-05] MEDS: CeFAZolin 1 GM/DEXTROSE 50 ML IV SCH (06:31)
[2021-06-05] MEDS: OxyCODONE HCL/ACETAMINOPHEN 5-325 MG TABLET PO PRN ×4 (06:45→21:00)
[2021-06-05 07:41] LABS: BASOPHILS % (AUTO) 0.2 % (0.0-2.0); EOSINOPHILS % (AUTO) 0.5 % (1.0-6.0); HEMATOCRIT 31.8 % (36-46); HEMOGLOBIN 10.9 g/dL (12.0-16.0); LYMPHOCYTES # (AUTO) 1.4 K/uL (1.0-4.8); LYMPHOCYTES % (AUTO) 17.7 % (22.0-44.0); MEAN CORPUSCULAR HGB CONC 34.1 G/dL (31.0-37.0); MEAN CORPUSCULAR VOLUME 82 fL (80-100); MONOCYTES # (AUTO) 0.9 K/uL (0.1-1.0); MONOCYTES % (AUTO) 11.1 % (2.0-9.0); NEUTROPHILS # (AUTO) 5.7 K/uL (1.8-7.7); NEUTROPHILS % (AUTO) 70.5 % (40.0-70.0); PLATELET COUNT (AUTO) 238 K/uL (150-450); RED BLOOD CELL COUNT(AUTO) 3.87 MIL/uL (4.00-5.20); RED CELL DISTRIBUTION WIDTH 14.1 % (11.5-14.5)
[2021-06-05] MEDS: OXYGEN THERAPY IH SCH ×2 (08:00→20:27)
[2021-06-05 08:42] VITALS: BP 110/57
[2021-06-05] MEDS: CALCIUM CIT/VITAMIN D3 200 MG-250 UNITS[6.25MCG] TABLET PO SCH ×2 (08:43→21:00)
[2021-06-05] MEDS: PANTOPRAZOLE SODIUM 40 MG DR TABLET PO SCH (08:43)
[2021-06-05] MEDS: DOCUSATE SODIUM 100 MG CAPSULE PO SCH ×2 (08:43→20:21)
[2021-06-05 08:44] VITALS: BP 119/57
[2021-06-05] MEDS: ENOXAPARIN SODIUM 30 MG/0.3 ML PF SYRINGE SQ SCH (08:44)
[2021-06-05] MEDS: CARVEDILOL 12.5 MG TABLET PO SCH ×3 (08:57→21:00)
[2021-06-05] MEDS: AmLODIPine BESYLATE 5 MG TABLET PO SCH (08:59)
[2021-06-05 16:53] VITALS: BP 144/81
[2021-06-05 20:00] VITALS: BP 132/65
[2021-06-05] MEDS: ATORVASTATIN CALCIUM 10 MG TABLET PO SCH (20:21)
[2021-06-06 04:42] VITALS: BP 103/54
[2021-06-06 06:38] LABS: BASOPHILS % (AUTO) 0.2 % (0.0-2.0); EOSINOPHILS % (AUTO) 3.6 % (1.0-6.0); HEMATOCRIT 30.6 % (36-46); HEMOGLOBIN 10.2 g/dL (12.0-16.0); LYMPHOCYTES # (AUTO) 1.6 K/uL (1.0-4.8); LYMPHOCYTES % (AUTO) 20.9 % (22.0-44.0); MEAN CORPUSCULAR HEMOGLOBIN 27.7 pg (26.0-34.0); MEAN CORPUSCULAR HGB CONC 33.2 G/dL (31.0-37.0); MEAN CORPUSCULAR VOLUME 84 fL (80-100); MONOCYTES # (AUTO) 0.9 K/uL (0.1-1.0); MONOCYTES % (AUTO) 11.7 % (2.0-9.0); NEUTROPHILS # (AUTO) 4.9 K/uL (1.8-7.7); NEUTROPHILS % (AUTO) 63.6 % (40.0-70.0); PLATELET COUNT (AUTO) 212 K/uL (150-450); RED BLOOD CELL COUNT(AUTO) 3.66 MIL/uL (4.00-5.20)
[2021-06-06 08:03] VITALS: BP 102/56
[2021-06-06] MEDS: CARVEDILOL 12.5 MG TABLET PO SCH ×2 (08:39→20:16)
[2021-06-06] MEDS: PANTOPRAZOLE SODIUM 40 MG DR TABLET PO SCH (08:39)
[2021-06-06] MEDS: CALCIUM CIT/VITAMIN D3 200 MG-250 UNITS[6.25MCG] TABLET PO SCH ×2 (08:40→20:15)
[2021-06-06] MEDS: OXYGEN THERAPY IH SCH (08:45)
[2021-06-06] MEDS: DOCUSATE SODIUM 100 MG CAPSULE PO SCH ×2 (09:00→20:15)
[2021-06-06] MEDS: ENOXAPARIN SODIUM 30 MG/0.3 ML PF SYRINGE SQ SCH (09:00)
[2021-06-06 17:00] VITALS: BP 119/61
[2021-06-06 20:06] VITALS: BP 110/55
[2021-06-06] MEDS: ATORVASTATIN CALCIUM 10 MG TABLET PO SCH (20:15)
[2021-06-07 05:15] VITALS: BP 135/66
[2021-06-07 07:33] VITALS: BP 134/66
[2021-06-07] MEDS: OXYGEN THERAPY IH SCH (08:00)
[2021-06-07] MEDS: DOCUSATE SODIUM 100 MG CAPSULE PO SCH (08:32)
[2021-06-07] MEDS: PANTOPRAZOLE SODIUM 40 MG DR TABLET PO SCH (08:32)
[2021-06-07] MEDS: CALCIUM CIT/VITAMIN D3 200 MG-250 UNITS[6.25MCG] TABLET PO SCH (08:32)
[2021-06-07] MEDS: ENOXAPARIN SODIUM 30 MG/0.3 ML PF SYRINGE SQ SCH (08:33)
[2021-06-07] MEDS: CARVEDILOL 12.5 MG TABLET PO SCH (08:33)
[2021-06-07 15:36] VITALS: BP 118/77
== END 2021-06-07 19:15 | DRG 522 ==
LOC: EMS 20:56 → 6S 06-04 00:11
PROVIDERS: ADMIT Internal Medicine; ATTEND Internal Medicine
PROC: 0SRS0JZ Replacement of Left Hip Joint, Femoral Surface with Synthetic Substitute, Open Approach (ICD-10-PCS; principal; 2021-06-04 15:00)
DX: M84.452A Pathological fracture, left femur, initial encounter for fracture (principal); I69.354 Hemiplegia and hemiparesis following cerebral infarction affecting left non-dominant side; I10 Essential (primary) hypertension; E78.5 Hyperlipidemia, unspecified; E78.00 Pure hypercholesterolemia, unspecified; G89.29 Other chronic pain; Z20.822 Contact with and (suspected) exposure to COVID-19; W18.39XA Other fall on same level, initial encounter; Z88.8 Allergy status to other drugs, medicaments and biological substances; Z79.02 Long term (current) use of antithrombotics/antiplatelets; Y93.89 Activity, other specified; Y99.8 Other external cause status; Y92.090 Kitchen in other non-institutional residence as the place of occurrence of the external cause
CPT/HCPCS: 71045; 73503; 80053; 82550; 83880; 84484; 85025; 85610; 85730; 86850; 86900; 86901; 87081; 88300; 93005; 93306; 97110; 97162; 97166; 97530; 97535; 99285; C9290; G0238; J0690; J1644; J1650; J2250; J2270; J2405; J2704; J3010; J3370; J3490; J7050; J7120; Q9967; 36415-L1; 36415-TC; C1716; Z7610

== ENCOUNTER 2021-06-29 07:14 | Inpatient (IN) | payer MEDICARE, MEDICAID ==
[~2021-06-29] VITALS: Ht 149.9 cm; Wt 51.9 kg
[~2021-06-29 07:14] MED LIST changes: +FAMO20 PO; +METH5TAB PO
[2021-06-29 07:33] LABS: COVID AG,FIA SOURCE NASOPHARYNGEAL
[2021-06-29 07:37] LABS: BASOPHILS % (AUTO) 0.5 % (0.0-2.0); EOSINOPHILS % (AUTO) 2.2 % (1.0-6.0); HEMATOCRIT 35.9 % (36-46); HEMOGLOBIN 11.8 g/dL (12.0-16.0); LYMPHOCYTES # (AUTO) 1.3 K/uL (1.0-4.8); LYMPHOCYTES % (AUTO) 21.7 % (22.0-44.0); MEAN CORPUSCULAR HEMOGLOBIN 27.2 pg (26.0-34.0); MEAN CORPUSCULAR HGB CONC 32.9 G/dL (31.0-37.0); MEAN CORPUSCULAR VOLUME 83 fL (80-100); MONOCYTES # (AUTO) 0.5 K/uL (0.1-1.0); MONOCYTES % (AUTO) 8.7 % (2.0-9.0); NEUTROPHILS # (AUTO) 4.1 K/uL (1.8-7.7); NEUTROPHILS % (AUTO) 66.9 % (40.0-70.0); PLATELET COUNT (AUTO) 326 K/uL (150-450); RED BLOOD CELL COUNT(AUTO) 4.35 MIL/uL (4.00-5.20); RED CELL DISTRIBUTION WIDTH 14.7 % (11.5-14.5)
[2021-06-29 08:10] LABS: ANION GAP 10 mmol/L (8-16); CALCIUM, TOTAL 8.9 mg/dL (8.8-10.5); CARBON DIOXIDE 29 mmol/L (22-29); CHLORIDE 102 mmol/L (98-107); CREATININE 0.76 mg/dL (0.60-1.30); GLUCOSE,RANDOM 121 mg/dL (70-110); POTASSIUM 4.3 mmol/L (3.5-5.1); SODIUM SERUM 141 mmol/L (136-145); UREA NITROGEN, BLOOD 15 mg/dL (7-18)
[2021-06-29 08:13] LABS: GLOMERULAR FILTR. RATE CALC > 60 mL/min (>60)
[2021-06-29 08:16] LABS: ALANINE AMINOTRANSFERASE 14 U/L (12-78); ALBUMIN 2.9 g/dL (3.4-5.0); ALKALINE PHOSPHATASE 135 U/L (46-116); ASPARTATE AMINOTRANSFERASE 12 U/L (15-37); BILIRUBIN,TOTAL 0.2 mg/dL (0.1-1.0); TOTAL PROTEIN, SERUM 7.2 g/dL (6.4-8.2)
[2021-06-29] MEDS ORDERED: ALBUTEROL SULFATE 2.5 MG/0.5 ML NEB SOLUTION NEB PRN (10:30)
[2021-06-29] MEDS ORDERED: 0.9% SODIUM CHLORIDE 10 ML SYRINGE IVP PRN (10:30)
[2021-06-29] MEDS ORDERED: ONDANSETRON HCL 4 MG/2 ML VIAL IVP PRN (10:30)
[2021-06-29] MEDS ORDERED: FAMOTIDINE 20 MG TABLET PO PRN (10:30)
[2021-06-29] MEDS ORDERED: IPRATROPIUM BROMIDE 0.5 MG/2.5 ML NEB SOLUTION NEB PRN (10:30)
[2021-06-29] MEDS ORDERED: BISACODYL 10 MG RECTAL RECTAL SUPPOSITORY PR PRN (10:30)
[2021-06-29] MEDS ORDERED: SUGAMMADEX SODIUM 200 MG/2 ML VIAL IVP ONE (11:35)
[2021-06-29] MEDS ORDERED: TRANEXAMIC ACID 1,000 MG/10 ML VIAL ONE ×2 (11:35→14:00)
[2021-06-29] MEDS ORDERED: VANCOMYCIN HCL 1 GM/VIAL ONE ×2 (11:35→15:45)
[2021-06-29] MEDS ORDERED: BUPIVACAINE HCL/PF 0.25% 30 ML VIAL ONE (11:36)
[2021-06-29] MEDS ORDERED: SODIUM CL IRRIG SOLN BAG 3,000 ML IRRIG ONE (11:36)
[2021-06-29] MEDS ORDERED: BUPIVACAINE LIPOSOME/PF 1.3%-13.3MG/ML SUSPENSION 20 ML VIAL INJ ONE (11:45)
[2021-06-29] MEDS ORDERED: MIDAZOLAM HCL 2 MG/2 ML VIAL IVP ONE (12:00)
[2021-06-29] MEDS ORDERED: PROPOFOL 1% 20 ML VIAL IVP ONE (12:00)
[2021-06-29] MEDS ORDERED: ONDANSETRON HCL 4 MG/2 ML VIAL IVP ONE (12:00)
[2021-06-29] MEDS ORDERED: DEXAMETHASONE SOD PHOS 4 MG/ML VIAL IVP ONE (12:00)
[2021-06-29] MEDS ORDERED: ROCURONIUM BROMIDE 10 MG/ML 5 ML VIAL IVP ONE (12:00)
[2021-06-29] MEDS ORDERED: LIDOCAINE/PF 2% 5 ML VIAL IM ONE (12:00)
[2021-06-29] MEDS ORDERED: FentaNYL CITRATE PF 100 MCG/2 ML VIAL IVP ONE (12:00)
[2021-06-29] MEDS ORDERED: SODIUM CHLORIDE 0.9% 1,000 ML ONE (12:44)
[2021-06-29] MEDS ORDERED: RINGERS SOLUTION,LACTATED 1,000 ML IV ONE (14:28)
[2021-06-29] MEDS ORDERED: ALBUMIN HUMAN 25%-50GM/200ML 200 ML IV ONE (14:30)
[2021-06-29] MEDS ORDERED: OxyCODONE HCL/ACETAMINOPHEN 5-325 MG TABLET PO PRN (16:30)
[2021-06-29] MEDS ORDERED: FentaNYL CITRATE PF 100 MCG/2 ML VIAL IVP PRN (17:15)
[2021-06-29] MEDS ORDERED: HYDROmorphone 2 MG/ML VIAL IVP PRN (17:15)
[2021-06-29 18:17] VITALS: BP 128/59
[2021-06-29 19:48] VITALS: BP 107/51
[2021-06-29] MEDS: ATORVASTATIN CALCIUM 10 MG TABLET PO SCH (20:40)
[2021-06-29] MEDS: DOCUSATE SODIUM 100 MG CAPSULE PO PRN (20:41)
[2021-06-29] MEDS: CARVEDILOL 12.5 MG TABLET PO SCH (20:45)
[2021-06-29] MEDS ORDERED: SODIUM CHLORIDE 0.9% 250 ML IV ONE (23:09)
[2021-06-29] MEDS: CeFAZolin 1 GM/DEXTROSE 50 ML IV SCH (23:25)
[2021-06-30] MEDS: OxyCODONE HCL/ACETAMINOPHEN 5-325 MG TABLET PO PRN ×3 (00:29→20:17)
[2021-06-30 04:41] VITALS: BP 119/52
[2021-06-30] MEDS: CeFAZolin 1 GM/DEXTROSE 50 ML IV SCH (06:20)
[2021-06-30 07:35] LABS: BASOPHILS % (AUTO) 0.1 % (0.0-2.0); EOSINOPHILS % (AUTO) 0 % (1.0-6.0); HEMATOCRIT 24.9 % (36-46); HEMOGLOBIN 8.3 g/dL (12.0-16.0); LYMPHOCYTES # (AUTO) 1.4 K/uL (1.0-4.8); LYMPHOCYTES % (AUTO) 18.1 % (22.0-44.0); MEAN CORPUSCULAR HEMOGLOBIN 27.5 pg (26.0-34.0); MEAN CORPUSCULAR HGB CONC 33.2 G/dL (31.0-37.0); MEAN CORPUSCULAR VOLUME 83 fL (80-100); MONOCYTES % (AUTO) 12.6 % (2.0-9.0); NEUTROPHILS # (AUTO) 5.5 K/uL (1.8-7.7); NEUTROPHILS % (AUTO) 69.2 % (40.0-70.0); PLATELET COUNT (AUTO) 252 K/uL (150-450); RED BLOOD CELL COUNT(AUTO) 3.01 MIL/uL (4.00-5.20); RED CELL DISTRIBUTION WIDTH 14.7 % (11.5-14.5)
[2021-06-30 07:46] LABS: ALANINE AMINOTRANSFERASE 12 U/L (12-78); ALBUMIN 2.9 g/dL (3.4-5.0); ALKALINE PHOSPHATASE 100 U/L (46-116); ANION GAP 5 mmol/L (8-16); ASPARTATE AMINOTRANSFERASE 15 U/L (15-37); BILIRUBIN,TOTAL 0.5 mg/dL (0.1-1.0); CALCIUM, TOTAL 8.3 mg/dL (8.8-10.5); CARBON DIOXIDE 29 mmol/L (22-29); CHLORIDE 105 mmol/L (98-107); CREATININE 0.58 mg/dL (0.60-1.30); GLUCOSE,RANDOM 120 mg/dL (70-110); POTASSIUM 4.5 mmol/L (3.5-5.1); SODIUM SERUM 139 mmol/L (136-145); TOTAL PROTEIN, SERUM 6.1 g/dL (6.4-8.2); UREA NITROGEN, BLOOD 14 mg/dL (7-18)
[2021-06-30 07:47] LABS: GLOMERULAR FILTR. RATE CALC > 60 mL/min (>60)
[2021-06-30 07:51] VITALS: BP 119/52
[2021-06-30] MEDS: OXYGEN THERAPY IH SCH ×2 (08:00→20:00)
[2021-06-30] MEDS: CARVEDILOL 12.5 MG TABLET PO SCH ×2 (09:25→20:10)
[2021-06-30] MEDS: METHIMAZOLE 5 MG TABLET PO SCH (09:25)
[2021-06-30] MEDS: ENOXAPARIN SODIUM 40 MG/0.4 ML PF SYRINGE SQ SCH (09:26)
[2021-06-30] MEDS: PANTOPRAZOLE SODIUM 40 MG DR TABLET PO SCH (09:26)
[2021-06-30] MEDS: AmLODIPine BESYLATE 5 MG TABLET PO SCH (09:26)
[2021-06-30] MEDS: CLOPIDOGREL BISULFATE 75 MG TABLET PO SCH (09:26)
[2021-06-30 16:23] VITALS: BP 112/50
[2021-06-30 19:43] VITALS: BP 123/60
[2021-06-30] MEDS: ATORVASTATIN CALCIUM 10 MG TABLET PO SCH (20:10)
[2021-06-30] MEDS: DOCUSATE SODIUM 100 MG CAPSULE PO PRN (20:10)
[2021-07-01 04:20] VITALS: BP 115/41
[2021-07-01] MEDS: OXYGEN THERAPY IH SCH ×2 (08:00→19:58)
[2021-07-01 08:03] VITALS: BP 111/41
[2021-07-01] MEDS: CARVEDILOL 12.5 MG TABLET PO SCH ×2 (09:00→20:27)
[2021-07-01] MEDS: AmLODIPine BESYLATE 5 MG TABLET PO SCH (09:00)
[2021-07-01] MEDS: PANTOPRAZOLE SODIUM 40 MG DR TABLET PO SCH (09:03)
[2021-07-01] MEDS: CLOPIDOGREL BISULFATE 75 MG TABLET PO SCH (09:03)
[2021-07-01] MEDS: ENOXAPARIN SODIUM 40 MG/0.4 ML PF SYRINGE SQ SCH (09:03)
[2021-07-01] MEDS: DOCUSATE SODIUM 100 MG CAPSULE PO PRN (09:04)
[2021-07-01] MEDS: METHIMAZOLE 5 MG TABLET PO SCH (09:04)
[2021-07-01] MEDS: OxyCODONE HCL/ACETAMINOPHEN 5-325 MG TABLET PO PRN ×2 (09:30→19:57)
[2021-07-01] MEDS ORDERED: HYPROMELLOSE 0.5% 15 ML OPHTHALMIC SOLUTION OU PRN (12:30)
[2021-07-01 15:42] VITALS: BP 118/51
[2021-07-01 19:48] VITALS: BP 115/51
[2021-07-01] MEDS: ATORVASTATIN CALCIUM 10 MG TABLET PO SCH (20:26)
[2021-07-02] VITALS (12 sets, daily range): BP systolic 103–136; BP diastolic 51–82
[2021-07-02 07:00] LABS: APPEARANCE,URINE CLEAR (CLEAR); BILIRUBIN,URINE NEGATIVE (NEGATIVE); GLUCOSE, URINE (UA) NEGATIVE (NEGATIVE); KETONES,URINE NEGATIVE (NEGATIVE); LEUKOCYTE ESTERASE ,URINE NEGATIVE (NEGATIVE); NITRATE,URINE NEGATIVE (NEGATIVE); OCCULT BLOOD,URINE TRACE (NEGATIVE); PH,URINE 5.5 (5.0-8.0); PROTEIN,URINE NEGATIVE (NEGATIVE); SPECIFIC GRAVITIY, URINE 1.019 (1.003-1.030); UROBILINOGEN,URINE <=1.0 mg/dL (<=1.0)
[2021-07-02 07:14] LABS: BACTERIA,URINE None Seen /HPF (None Seen); RBC,URINE None Seen /HPF (0-2); SQUAMOUS EPITHELIAL CELL,UR Few /LPF (None Seen); WBC,URINE None Seen /HPF (0-5)
[2021-07-02 07:32] LABS: BASOPHILS % (AUTO) 0.3 % (0.0-2.0); EOSINOPHILS % (AUTO) 1.2 % (1.0-6.0); LYMPHOCYTES # (AUTO) 1.5 K/uL (1.0-4.8); MEAN CORPUSCULAR HEMOGLOBIN 26.5 pg (26.0-34.0); MEAN CORPUSCULAR VOLUME 83 fL (80-100); MONOCYTES # (AUTO) 0.9 K/uL (0.1-1.0); MONOCYTES % (AUTO) 12.7 % (2.0-9.0); NEUTROPHILS # (AUTO) 4.4 K/uL (1.8-7.7); NEUTROPHILS % (AUTO) 63.8 % (40.0-70.0); PLATELET COUNT (AUTO) 240 K/uL (150-450); RED BLOOD CELL COUNT(AUTO) 2.45 MIL/uL (4.00-5.20); RED CELL DISTRIBUTION WIDTH 14.5 % (11.5-14.5)
[2021-07-02 07:34] LABS: HEMATOCRIT 20.2 % (36-46); HEMOGLOBIN 6.5 g/dL (12.0-16.0)
[2021-07-02 07:45] LABS: ALANINE AMINOTRANSFERASE 10 U/L (12-78); ALBUMIN 2.3 g/dL (3.4-5.0); ALKALINE PHOSPHATASE 82 U/L (46-116); ANION GAP 2 mmol/L (8-16); ASPARTATE AMINOTRANSFERASE 13 U/L (15-37); BILIRUBIN,TOTAL 0.3 mg/dL (0.1-1.0); CALCIUM, TOTAL 7.9 mg/dL (8.8-10.5); CARBON DIOXIDE 30 mmol/L (22-29); CHLORIDE 104 mmol/L (98-107); GLOMERULAR FILTR. RATE CALC > 60 mL/min (>60); GLUCOSE,RANDOM 121 mg/dL (70-110); POTASSIUM 4.2 mmol/L (3.5-5.1); SODIUM SERUM 136 mmol/L (136-145); TOTAL PROTEIN, SERUM 5.8 g/dL (6.4-8.2); UREA NITROGEN, BLOOD 12 mg/dL (7-18)
[2021-07-02] MEDS: OXYGEN THERAPY IH SCH ×2 (08:00→20:00)
[2021-07-02] MEDS ORDERED: FUROSEMIDE 20 MG/2 ML VIAL IVP ONE ×2 (08:15)
[2021-07-02] MEDS ORDERED: ACETAMINOPHEN 325 MG TABLET PO ONE (08:15)
[2021-07-02] MEDS ORDERED: DiphenhydrAMINE HCL 50 MG/ML VIAL IVP ONE (08:15)
[2021-07-02] MEDS ORDERED: DiphenhydrAMINE HCL 25 MG CAPSULE PO ONE (08:15)
[2021-07-02] MEDS: AmLODIPine BESYLATE 5 MG TABLET PO SCH (09:24)
[2021-07-02] MEDS: PANTOPRAZOLE SODIUM 40 MG DR TABLET PO SCH (09:24)
[2021-07-02] MEDS: METHIMAZOLE 5 MG TABLET PO SCH (09:27)
[2021-07-02] MEDS: ENOXAPARIN SODIUM 40 MG/0.4 ML PF SYRINGE SQ SCH (09:31)
[2021-07-02] MEDS: CLOPIDOGREL BISULFATE 75 MG TABLET PO SCH (09:33)
[2021-07-02] MEDS: CARVEDILOL 12.5 MG TABLET PO SCH ×2 (11:26→20:36)
[2021-07-02] MEDS: OxyCODONE HCL/ACETAMINOPHEN 5-325 MG TABLET PO PRN ×2 (11:27→20:19)
[2021-07-02] MEDS ORDERED: MAGNESIUM HYDROXIDE SUSPENSION 30 ML UDCUP PO PRN (14:45)
[2021-07-02] MEDS ORDERED: CARV25 PO (14:50)
[2021-07-02 15:56] LABS: BASOPHILS % (AUTO) 0.4 % (0.0-2.0); EOSINOPHILS % (AUTO) 1.1 % (1.0-6.0); HEMATOCRIT 23.7 % (36-46); HEMOGLOBIN 7.9 g/dL (12.0-16.0); LYMPHOCYTES # (AUTO) 1.6 K/uL (1.0-4.8); LYMPHOCYTES % (AUTO) 22.9 % (22.0-44.0); MEAN CORPUSCULAR HEMOGLOBIN 27.4 pg (26.0-34.0); MEAN CORPUSCULAR HGB CONC 33.3 G/dL (31.0-37.0); MEAN CORPUSCULAR VOLUME 82 fL (80-100); MONOCYTES # (AUTO) 0.7 K/uL (0.1-1.0); MONOCYTES % (AUTO) 10.6 % (2.0-9.0); NEUTROPHILS # (AUTO) 4.5 K/uL (1.8-7.7); PLATELET COUNT (AUTO) 205 K/uL (150-450); RED BLOOD CELL COUNT(AUTO) 2.88 MIL/uL (4.00-5.20); RED CELL DISTRIBUTION WIDTH 14.6 % (11.5-14.5)
[2021-07-02] MEDS: ATORVASTATIN CALCIUM 10 MG TABLET PO SCH (20:18)
[2021-07-02] MEDS: DOCUSATE SODIUM 100 MG CAPSULE PO PRN (20:22)
[2021-07-03] MEDS: OxyCODONE HCL/ACETAMINOPHEN 5-325 MG TABLET PO PRN ×2 (00:41→05:30)
[2021-07-03 05:17] VITALS: BP 134/60
[2021-07-03 05:47] LABS: BASOPHILS % (AUTO) 0.6 % (0.0-2.0); EOSINOPHILS % (AUTO) 2.9 % (1.0-6.0); HEMATOCRIT 23.9 % (36-46); HEMOGLOBIN 7.9 g/dL (12.0-16.0); LYMPHOCYTES # (AUTO) 1.6 K/uL (1.0-4.8); LYMPHOCYTES % (AUTO) 26.7 % (22.0-44.0); MEAN CORPUSCULAR VOLUME 82 fL (80-100); MONOCYTES # (AUTO) 0.7 K/uL (0.1-1.0); MONOCYTES % (AUTO) 10.9 % (2.0-9.0); NEUTROPHILS # (AUTO) 3.6 K/uL (1.8-7.7); NEUTROPHILS % (AUTO) 58.9 % (40.0-70.0); PLATELET COUNT (AUTO) 247 K/uL (150-450); RED BLOOD CELL COUNT(AUTO) 2.91 MIL/uL (4.00-5.20); RED CELL DISTRIBUTION WIDTH 14.8 % (11.5-14.5)
[2021-07-03 06:09] LABS: ALANINE AMINOTRANSFERASE 12 U/L (12-78); ALBUMIN 2.3 g/dL (3.4-5.0); ALKALINE PHOSPHATASE 82 U/L (46-116); ANION GAP 5 mmol/L (8-16); ASPARTATE AMINOTRANSFERASE 13 U/L (15-37); BILIRUBIN,TOTAL 0.4 mg/dL (0.1-1.0); CALCIUM, TOTAL 8.2 mg/dL (8.8-10.5); CARBON DIOXIDE 31 mmol/L (22-29); CHLORIDE 103 mmol/L (98-107); CREATININE 0.51 mg/dL (0.60-1.30); GLUCOSE,RANDOM 107 mg/dL (70-110); SODIUM SERUM 139 mmol/L (136-145); UREA NITROGEN, BLOOD 12 mg/dL (7-18)
[2021-07-03 06:13] LABS: GLOMERULAR FILTR. RATE CALC > 60 mL/min (>60)
[2021-07-03] MEDS: OXYGEN THERAPY IH SCH (08:00)
[2021-07-03 08:06] VITALS: BP 108/46
[2021-07-03] MEDS: ENOXAPARIN SODIUM 40 MG/0.4 ML PF SYRINGE SQ SCH (08:51)
[2021-07-03] MEDS: DOCUSATE SODIUM 100 MG CAPSULE PO PRN (08:51)
[2021-07-03] MEDS: CLOPIDOGREL BISULFATE 75 MG TABLET PO SCH (08:52)
[2021-07-03] MEDS: PANTOPRAZOLE SODIUM 40 MG DR TABLET PO SCH ×2 (08:52→09:00)
[2021-07-03] MEDS: METHIMAZOLE 5 MG TABLET PO SCH (08:52)
[2021-07-03] MEDS: AmLODIPine BESYLATE 5 MG TABLET PO SCH (09:00)
[2021-07-03] MEDS: CARVEDILOL 12.5 MG TABLET PO SCH (09:00)
[2021-07-03 10:15] LABS: COVID AG,FIA SOURCE NASAL SWAB
[2021-07-03] MEDS ORDERED: ENOX40SY14 SQ (13:17)
[2021-07-03] MEDS ORDERED: PERCT PO (13:19)
[2021-07-03 16:11] VITALS: BP 117/50
== END 2021-07-03 16:58 | DRG 470 ==
LOC: EMS 07:22 → 6S 12:36
PROVIDERS: ADMIT Internal Medicine; ATTEND Internal Medicine
PROC: 0SRS0JZ Replacement of Left Hip Joint, Femoral Surface with Synthetic Substitute, Open Approach (ICD-10-PCS; principal; 2021-06-29 13:35)
PROC: 30233N1 Transfusion of Nonautologous Red Blood Cells into Peripheral Vein, Percutaneous Approach (ICD-10-PCS; 2021-07-02)
DX: M97.02XA Periprosthetic fracture around internal prosthetic left hip joint, initial encounter (principal); D62 Acute posthemorrhagic anemia; I69.354 Hemiplegia and hemiparesis following cerebral infarction affecting left non-dominant side; E78.5 Hyperlipidemia, unspecified; I10 Essential (primary) hypertension; Z20.822 Contact with and (suspected) exposure to COVID-19; E78.00 Pure hypercholesterolemia, unspecified; Z88.8 Allergy status to other drugs, medicaments and biological substances; Z79.02 Long term (current) use of antithrombotics/antiplatelets; Z79.899 Other long term (current) drug therapy
CPT/HCPCS: 71045; 72170; 73503; 80053; 81001; 82271; 84484; 85025; 86850; 86900; 86901; 86923; 87081; 93005; 97110; 97162; 97167; 97530; 97535; 99285; C9290; G0238; J0690; J1100; J1650; J2250; J2405; J2704; J3010; J3370; J3490; J7030; J7050; J7120; P9016; P9046; Q9967; 36415-L1; 36415-TC